=== PATIENT | male | born 1935 | race Caucasian/White ===

== ENCOUNTER → 2016-09-13 | Outpatient (CLI) | payer OTHER ==
[~2016-09-13] MED LIST: BENADRYL25 MG PO; FOSINOPRIL SODI20 MG PO; NIACIN500 M3; PREDNISONE PO
--- NOTE | ~2016-09-13 | CT71 ---
[facility] A Service of [facility] RADIOLOGY TEXT RESULTS PATIENT: LESLIE READ LOCATION: [facility] : 35 UNIT #: [id number] AGE: [address]: ALONSO TARIQ MD SEX: M ORDER DR: [id number] [facility] [place] [address] [place], [place] [address] [id number] O MR#: [id number] [facility] #: [id number] NAME: LESLIE READ : 1935 SEX: M STUDY DATE/TIME: 09/13/2016 15:29 UNIT: [facility] ROOM: STUDY DESCRIPTION: CT Head Wo Contrast Attending Physician: Alonso Tariq M.D. Referring Physician: Alonso Tariq M.D. Ordering Physician: Alonso Tariq M.D. Primary Care Physician: Alonso Tariq M.D. MEDICAL IMAGING REPORT This report is preliminary unless electronic signature is present EXAM CT of the brain without contrast media HISTORY Memory loss for 3 years, increasing confusion. TECHNIQUE Axial imaging of the brain was performed without contrast media. There are no prior studies. This CT exam was performed with one or more of the following radiation dose reduction techniques: Automatic exposure control, adjustment of mA and/or kV according to patient size, and iterative reconstruction. FINDINGS There is generalized prominence of the ventricles and CSF-containing spaces. There is decreased attenuation in the periventricular regions, which is mild. 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 No mass lesions, mass effect, acute hemorrhage or edema. 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 Bone windows are reviewed and appear unremarkable. CONCLUSION Generalized atrophy, chronic ischemic changes in the basal ganglia. Atherosclerotic calcifications as noted above. No acute intracranial findings. Dictated by... Amando Lea M.D. THIS IS AN ELECTRONICALLY VERIFIED REPORT Amando Lae M.D. at 09/14/2016 7:10 AM JFK/psc [facility] A Service of [facility] RADIOLOGY TEXT RESULTS PATIENT: LESLIE READ LOCATION: [facility] #: [id number] : 35 UNIT #: [id number] AGE: [address]: ALONSO TARIQ MD SEX: M ORDER DR: TD: 09/13/2016 21:19 JOB #: [id number] MEDICAL IMAGING REPORT Page 1 of 1 COPY
== END | disposition home or self-care (01) ==
LOC: CCAT 15:10
DX: R41.3 Other amnesia (principal); G31.9 Degenerative disease of nervous system, unspecified; I67.2 Cerebral atherosclerosis
CPT/HCPCS: 70450

== ENCOUNTER 2016-12-02 20:41 | Emergency (ER) | payer OTHER ==
[~2016-12-02] VITALS: Ht 180.3 cm; Wt 90.7 kg
--- NOTE | ~2016-12-02 | CR170 ---
[facility] A Service of [facility] RADIOLOGY TEXT RESULTS PATIENT: LESLIE READ LOCATION: [facility] : 35 UNIT #: [id number] AGE: [address]: Amando White SEX: M ORDER DR: [id number] [facility] [address] [place], [place] [address] [id number] E MR#: [id number] Acc #: [id number] NAME: LESLIE READ : 1935 SEX: M STUDY DATE/TIME: 12/02/2016 21:40 UNIT: [facility] ROOM: STUDY DESCRIPTION: CR Knee 2 Views Rt Attending Physician: Amando White P.A.-C. Ordering Physician: Amando White P.A.-C. Primary Care Physician: Jose Pineda M.D. MEDICAL IMAGING REPORT This report is preliminary unless electronic signature is present EXAM Right knee INDICATIONS Right anterior knee pain and swelling. One-day duration status post fall. FINDINGS Three views of the right knee without comparison. There is no acute fracture, dislocation or effusion. There is moderate osteoarthritis of the right knee. IMPRESSION No acute findings. Moderate osteoarthritis. Dictated by... Neel Sanford M.D. THIS IS AN ELECTRONICALLY VERIFIED REPORT Neel Sanford M.D. at 12/03/2016 3:13 PM Robbie/matt TD: 12/02/2016 22:43 JOB #: [id number] MEDICAL IMAGING REPORT Page 1 of 1 COPY
[~2016-12-02 20:41] MED LIST changes: -FOSINOPRIL SODI20 MG PO; -NIACIN500 M3
[2016-12-20] MEDS ORDERED: FOSINOPRIL SODI20 MG PO (14:07)
[2016-12-20] MEDS ORDERED: NIACIN500 M3 (14:08)
== END 2016-12-02 22:20 | disposition home or self-care (01) ==
LOC: CED 20:41 → CFTX 20:41
DX: S76.111A Strain of right quadriceps muscle, fascia and tendon, initial encounter (principal); E78.5 Hyperlipidemia, unspecified; I10 Essential (primary) hypertension; Z79.899 Other long term (current) drug therapy; Z88.0 Allergy status to penicillin; W19.XXXA Unspecified fall, initial encounter; Y92.009 Unspecified place in unspecified non-institutional (private) residence as the place of occurrence of the external cause
CPT/HCPCS: 29505; 73560; 99283

== ENCOUNTER 2016-12-22 08:55 | Inpatient (IN) | payer OTHER ==
[~2016-12-22] VITALS: Ht 180.3 cm; Wt 91.6 kg
--- NOTE | ~2016-12-22 | OR ---
Unit #: [id number] #: [id number] Patient: LESLIE REED [id number] [address] [address] [id number] I MR#: [id number] NAME: LESLIE REED. ROOM: [facility] Date of Procedure: 12/22/2016 Admission Date: 12/22/2016 Surgeon: Terry Tiwari M.D. : 1935 Attending Physician: Terry Tiwari M.D. Primary Care Physician: Jose Pineda M.D. OPERATIVE REPORT PREOPERATIVE DIAGNOSIS Right quadriceps tendon rupture. POSTOPERATIVE DIAGNOSIS Right quadriceps tendon rupture. PROCEDURE PERFORMED Right quadriceps tendon repair. EDUCATION ADMINISTRATIVE ASSISTANT Gaby Merrill APRN, [place]. ANESTHESIA General with regional nerve block. ESTIMATED BLOOD LOSS 10 mL. COMPLICATIONS None apparent. INDICATIONS FOR PROCEDURE Mr. eRed is an 81-year-old gentleman, who sustained a right quadriceps tendon avulsion from the superior pole of the patella. He was to undergo surgical treatment by Dr. Martinez approximately a week ago. However, this was canceled and subsequently delayed due to concern for possible injury to the left knee. That has not been worked up and evaluated. He has no left knee tendon rupture. However, he still has very poor mobility and postoperative rehabilitation in an inpatient setting will be required. As a result, he now presents to [facility] for definitive treatment and eventual rehab placement. The nature of the surgery has been discussed with the patient. Risks, benefits, and alternatives have been reviewed. At this point, he elected to proceed with a right quadriceps tendon repair. DESCRIPTION OF PROCEDURE The patient was identified in the preoperative holding area. The operative site was marked. Preoperative antibiotics were administered. A block was performed. The patient was brought to the operating room and placed supine on the operating table. A tourniquet was applied in the right thigh. The right leg was then prepped and draped in sterile fashion. Unit #: [id number] #: [id number] Patient: LESLIE REED The leg was exsanguinated. The tourniquet inflated. A standard midline incision was made over the anterior aspect of the right knee. Dissection was carried down through the subcutaneous tissues to the overlying extensor mechanism. Medial and lateral skin flaps were elevated. The quadriceps tendon rupture was easily identifiable. This was dissected out both medially and laterally to the retinacular extension of the rupture. The tendon stump was debrided off the superior pole of the patella. A #5 Ethibond suture was then passed in a running locking Krackow stitch in the quadriceps. A second Ethibond was placed in the more lateral aspect of the tendon leaving this with 4 tails exiting the quadriceps tendon. Three transosseous bone tunnels were then drilled in the patella from distal to proximal. These were positioned. Once we drilled these in desired position, we then shuttled the sutures through the patella according to the standard technique. The sutures were then passed underneath the patellar tendon distally and tied on both medial and lateral aspect of the tendon. The quadriceps was well reduced back down to bone and the knee was taken through gentle range of motion. The repair was stable. The repair was then reinforced with a #2 Vicryl in an interrupted [id number] fashion across the repair and into the medial and lateral retinacular extensions of the tear. This further straightened the repair and minimize any gap formation with gentle flexion extension. The available retinaculum was then sutured loosely over the entire construct to help prevent any subcutaneous adhesions. It should be noted the knee was held in full extension with a bump under the ipsilateral heel throughout the quad repair. The wound was then irrigated and the subcutaneous tissue was closed in a layered fashion ultimately with cathy in the skin. Sterile dressings were applied. The patient was placed into a knee immobilizer. DISPOSITION Stable to the recovery room. Dictated by... Jessica Hernandez/yanet TD: 12/22/2016 16:25 JOB #: [id number] OPERATIVE REPORT Page 1 of 1 X Terry Tiwari MD PROCEDURE OPERATIVE NOTE
--- NOTE | ~2016-12-22 | EKG ---
PATIENT: LESLIE READ UNIT #: [id number] Ventricular Rate: 71 BPM Atrial Rate: 71 BPM P-R Interval: 140 ms QRS Duration: 92 ms Q-T Interval: 372 ms QTC Calculation(Bezet): 404 ms P [place]: 71 degrees Calculated R [place]: 11 degrees Calculated T [place]: 29 degrees Diagnosis Line: Normal sinus rhythm Diagnosis Line: Normal ECG Diagnosis Line: No previous ECGs available Diagnosis Line: Confirmed by JENNIFER PEREZ MD ([id number]) on Diagnosis Line: 12/22/2016 10:43:20 PM INTERPRETING MD: MARLIN
--- NOTE | ~2016-12-22 | DS ---
Unit #: [id number] #: [id number] Patient: LESLIE REED [id number] [address] [place], [place] [address] [id number] I MR#: [id number] NAME: LESLIE REED ROOM: 449 Age: 81 Sex: M Admission Date: 12/22/2016 : 1935 Discharge Date: 12/25/2016 Attending Physician: Terry Tiwari M.D. Primary Care Physician: Jose Pineda M.D. DISCHARGE SUMMARY ADMITTING DIAGNOSIS Ruptured right quadriceps tendon. DISCHARGE DIAGNOSES Status post right quadriceps tendon repair. ATTENDING Terry Tiwari M.D., orthopedic surgery. PROCEDURES On 12/22/2016 the patient underwent a right quadriceps tendon repair. Please see operative report for further details. BRIEF HISTORY Mr. Reed is an 81-year-old male who was seen in our office for traumatic rupture of the right quadriceps tendon. Dr. Tiwari recommended repair of the right quadriceps tendon. He elected to proceed with surgery on 12/22/2016. HOSPITAL COURSE On the night of surgery, the patient was transferred to orthopedic unit for postoperative care. The night of surgery was uneventful and remained stable. On postop day #1, the patient's vital signs remained stable. He was awake, alert and oriented x3 in no acute distress. He remained in a knee immobilizer. His right knee dressing was clean, dry, and intact. He was able to move his ankle and toes up and down. He had normal sensation to light touch in all five digits. His toes were warm and well perfused. His white blood cell count was 9.1 and hemoglobin was 12.9. He worked with physical therapy on postop day #1. He was placed on Xarelto and SCDs for DVT prophylaxis. On postop day #2, the patient was complaining of increased pain in the left lower extremity. An MRI was reviewed in the left knee, which showed tracking about compartmental osteoarthritis, as well as a lateral meniscus tear. X-rays taken of the left ankle showed an evulsion of the medial malleolus that was chronic appearing. 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 He was given a left knee steroid injection for pain control. Upon checking on patient later that day, his pain had improved. He was afebrile and vital signs remained stable. He was awake, alert and oriented but had some mild confusion. We stopped his pain medication and ordered urinalysis. The urinalysis was negative. He was checked on later that day and was awake, alert and oriented x3 after stopping pain Unit #: [id number] #: [id number] Patient: LESLIE REED medications. The right knee incision was clean, dry and intact with no surrounding erythema or warmth. His calves were soft and nontender. He is able to move his ankle and toes up and down. He had normal sensation to light touch in all five digits. The left lower extremity was also examined. He had inconsistent tenderness to palpation over the left knee and ankle. He was able to tolerate general passive range of motion at times. He notes moderate erythema over the left knee or calf. He did have mild left ankle swelling. He is able to move his toes up and down. He had normal sensation to light touch in all five digits. His white blood cell count was 9.9 and hemoglobin 13.3. He is to continue working with physical therapy and he can weight bear as tolerated. He will have right lower extremity in a knee immobilizer. CONDITION AT DISCHARGE Stable DISPOSITION The patient will be discharged to rehab tomorrow if bed is available. DISCHARGE MEDICATIONS 1. Xarelto 10 mg p.o. daily for 11 days. 2. Lisinopril 20 mg p.o. daily. 3. Niacin 500 mg daily. 4. Percocet 5/325 mg 1 tab p.o. q.6 hours p.r.n. The patient was sent to rehab with a prescription for Percocet as well as Xarelto. DISCHARGE INSTRUCTIONS 1. The patient will followup with Dr. Tiwari in two weeks time. He is to call the office for an appointment. 2. He may weight bear as tolerated in the right lower extremity with a knee immobilizer in place. He is to have a knee immobilizer in place at all times. 3. He will have daily dressing changes performed to the right knee incision. He is not to get his incision wet. Dictated by... Mckinley Pittman APRN for Jessica Hernandez TD: 12/25/2016 12:02 JOB #: [id number] DISCHARGE SUMMARY Page 1 of 1 X MCKINLEY PITTMAN APRN X DISCHARGE SUMMARY
--- NOTE | ~2016-12-22 | CR17 ---
[facility] A Service of [facility] RADIOLOGY TEXT RESULTS PATIENT: LESLIE READ LOCATION: [facility] 449-01 : 35 UNIT #: [id number] AGE: [address]: Terry Tiwari MD SEX: M ORDER DR: [id number] [facility] [address] [place], [place] [address] [id number] I MR#: [id number] Acc #: [id number] NAME: LESLIE READ : 1935 SEX: M STUDY DATE/TIME: 12/24/2016 8:46 UNIT: [facility] ROOM: [facility] STUDY DESCRIPTION: CR Ankle 2 Views Lt Attending Physician: Terry Tiwari M.D. Referring Physician: Jose Pham M.D. Ordering Physician: Michael Rodriguez M.D. Primary Care Physician: Jose Pineda M.D. MEDICAL IMAGING REPORT This report is preliminary unless electronic signature is present EXAMINATION Two views of the left ankle. DATE 12/24/2016 HISTORY 81-year-old male left ankle pain and swelling for 2 days. No known injury. COMPARISON None. FINDINGS No acute left ankle fracture is seen. Soft tissue swelling is demonstrated laterally. Chronic well-corticated calcifications are demonstrated at the medial margin, medial malleolus, posterior margin of the ankle, it may represent sequelae of remote injury. There is a prominent plantar calcaneal spur. There is spurring at the dorsum of the midfoot, and subchondral cystic change at the tarsal-tarsal articulations. IMPRESSION 1. Left ankle soft tissue swelling laterally without evidence of acute osseous abnormality. 2. Degenerative changes of the imaged left foot and ankle. Dictated by... Marcela Nguyễn M.D. THIS IS AN ELECTRONICALLY VERIFIED REPORT Marcela Nguyễn M.D. at 12/25/2016 1:54 PM VY/paul [facility] A Service [facility] RADIOLOGY TEXT RESULTS PATIENT: LESLIE READ LOCATION: B 449-01 : 35 UNIT #: [id number] AGE: [address]: Terry Tiwari MD SEX: M ORDER DR: TD: 12/24/2016 21:25 JOB #: [id number] MEDICAL IMAGING REPORT Page 1 of 1 COPY
--- NOTE | ~2016-12-22 | OR ---
Unit #: [id number] #: [id number] Patient: LESLIE READ [id number] [address] [place], [place] [address] [id number] I MR#: [id number] NAME: LESLIE READ ROOM: [facility] Date of Procedure: 12/24/2016 Admission Date: 12/22/2016 Surgeon: Terry Tiwari M.D. : 1935 Attending Physician: Terry Tiwari M.D. Primary Care Physician: Jose Pineda M.D. OPERATIVE REPORT PROCEDURE PERFORMED Left knee intraarticular steroid injection. DESCRIPTION OF PROCEDURE The left knee was identified in a formal time-out. The left knee was then prepped with Betadine solution. A 22-gauge needle was then directed to an anterior lateral portal. A 4 mL of lidocaine, 4 mL of Marcaine, and 1.5 mL of Kenalog were the administered. The patient tolerated the procedure well. Dictated by... Mckinley Pittman APRN for Jessica Hernandez/yanet TD: 12/24/2016 19:22 JOB #: [id number] OPERATIVE REPORT Page 1 of 1 X MCKINLEY PITTMAN APRN X PROCEDURE OPERATIVE NOTE
[~2016-12-22 08:55] MED LIST changes: +FOSINOPRIL SODI20 MG PO; +NIACIN500 M3
[2016-12-22 10:22] LABS: ALBUMIN SERUM 3.5 g/dL (3.5-5.0); BILIRUBIN,TOTAL 0.8 mg/dL (0.2-2.0); BUN/CREATININE RATIO 11.81; CREATININE SERUM 1.1 mg/dL (0.6-1.4); GLOM FILT RATE Estimated 62.6 mL/min (>60); POTASSIUM 4.9 mmol/L (3.5-5.1); PROTEIN TOTAL SERUM 7.7 g/dL (6.0-8.3)
[2016-12-23 03:48] LABS: BASOPHIL% 0.3 % (0-2.5); DIFF IND NO; EOSINOPHIL% 0.4 % (0.0-7.0); HEMOGLOBIN 12.9 gm/dL (13.0-16.0); LYMPHOCYTE# 0.9 X10e3 (1.0-3.5); LYMPHOCYTE% 10.2 % (17.0-45.0); MEAN CORPUSCULAR HEMOGLOBIN 31.9 PG (28-34); MEAN PLATELET VOLUME 7.7 FL (6.5-11.5); MONOCYTE# 0.8 X10e3 (0-1.0); MONOCYTE% 8.3 % (3.0-12.0); NEUTROPHIL# 7.4 X10e3 (1.5-7.1); NEUTROPHIL% 80.8 % (40-75); PLATELET COUNT 349 X10e3 (140-420); RED BLOOD COUNT 4.04 X10e (3.90-5.60); RED CELL DISTRIBUTION WIDTH 13.9 % (11.0-15.5); WHITE BLOOD COUNT 9.1 X10e3 (4.0-10.5)
[2016-12-23 03:59] LABS: INR 1.1; PROTHROMBIN TIME (PATIENT) 11.4 SECONDS (10.0-11.7)
[2016-12-24 04:05] LABS: BASOPHIL% 0.4 % (0-2.5); EOSINOPHIL# 0.1 X10e3 (0-0.7); EOSINOPHIL% 0.7 % (0.0-7.0); HEMATOCRIT 40.7 % (38.0-50.0); HEMOGLOBIN 13.3 gm/dL (13.0-16.0); LYMPHOCYTE# 1.2 X10e3 (1.0-3.5); MEAN CELL VOLUME 95.6 FL (83-96); MEAN CORPUSCULAR HEMOGLOBIN 31.3 PG (28-34); MEAN CORPUSCULAR HGB CONC 32.7 g/dL (30-36); MEAN PLATELET VOLUME 7.7 FL (6.5-11.5); MONOCYTE# 1.1 X10e3 (0-1.0); MONOCYTE% 10.9 % (3.0-12.0); NEUTROPHIL# 7.5 X10e3 (1.5-7.1); PLATELET COUNT 319 X10e3 (140-420); RED BLOOD COUNT 4.26 X10e (3.90-5.60); WHITE BLOOD COUNT 9.9 X10e3 (4.0-10.5)
[2016-12-24 04:06] LABS: DIFF IND NO
[2016-12-24 09:01] LABS: INR 1.1; PROTHROMBIN TIME (PATIENT) 12.3 SECONDS (10.0-11.7)
[2016-12-24 11:13] LABS: URINE SOURCE CLEAN CATCH
[2016-12-24 11:21] LABS: URINE APPEARANCE CLEAR; URINE BILIRUBIN NEG (NEG); URINE BLOOD NEG (NEG); URINE COLOR YELLOW; URINE GLUCOSE NEG (NEG); URINE KETONE 1+ (NEG); URINE LEUKOCYTE ESTERASE NEG (NEG); URINE NITRATE NEG (NEG); URINE PROTEIN NEG (NEG); URINE SPECIFIC GRAVITY 1.016 (1.003-1.035)
[2016-12-24 11:25] LABS: CULTURE INDICATED? NO
[2016-12-25 03:52] LABS: INR 1.1; PROTHROMBIN TIME (PATIENT) 12.2 SECONDS (10.0-11.7)
== END 2016-12-25 16:20 | DRG 502 ==
LOC: CSUR 08:55 → CPACUOF 11:25 → CSUR 11:25 → C4B 13:35 → CPACUOF 13:35 → C4B 16:55
PROVIDERS: Nurse Practitioner; Orthopaedic Surgery
PROC: 0LQL0ZZ Repair Right Upper Leg Tendon, Open Approach (ICD-10-PCS; principal; 2016-12-22 11:45)
PROC: 3E0U33Z Introduction of Anti-inflammatory into Joints, Percutaneous Approach (ICD-10-PCS; 2016-12-24)
PROC: 3E0U3BZ Introduction of Anesthetic Agent into Joints, Percutaneous Approach (ICD-10-PCS; 2016-12-24)
DX: S76.111A Strain of right quadriceps muscle, fascia and tendon, initial encounter (principal); I10 Essential (primary) hypertension; M19.072 Primary osteoarthritis, left ankle and foot; Z86.718 Personal history of other venous thrombosis and embolism; Z87.891 Personal history of nicotine dependence; Z88.0 Allergy status to penicillin
CPT/HCPCS: 73600; 80053; 81003; 85025; 85610; 93005; 94010; 94760; 94761; 97110; 97161; 97165; 97530; G8978-GP; G8979-GP; G8987-GO; G8988-GO; J2270; J2795; J3010; J3370